=== PATIENT | female | born 1975 | race Caucasian/White ===

== ENCOUNTER 2017-10-06 15:28 | Emergency (ER) | payer OTHER ==
[~2017-10-06] VITALS: Ht 162.6 cm; Wt 63.5 kg
[2017-10-06] MEDS ORDERED: ACET1TAB23 PO (15:49)
[2017-10-06] MEDS ORDERED: HYDROCODONE/APAP 5-325MG TABLET ONE (16:29)
--- NOTE | 2017-10-06 16:29 | NUR ---
Patient discharged to home in stable conditon. Written and verbal after care instructions given. Patient verbalizes understanding of instructions.
[2017-10-06] MEDS ORDERED: HYDROCODONE/APAP 5-325MG TABLET PO ONE (16:30)
== END 2017-10-06 16:30 | disposition home or self-care (01) ==
LOC: ER 15:30
DX: K08.89 Other specified disorders of teeth and supporting structures (principal); Z79.891 Long term (current) use of opiate analgesic
CPT/HCPCS: 99282; A4663

== ENCOUNTER 2017-10-12 14:56 | Emergency (ER) | payer MEDICAID, OTHER ==
[~2017-10-12] VITALS: Ht 162.6 cm; Wt 63.5 kg
[~2017-10-12 14:56] MED LIST: ACET1TAB23 PO
[2017-10-12] MEDS ORDERED: HYDROCODONE/APAP 5-325MG TABLET PO ONE (16:45)
[2017-10-12] MEDS ORDERED: HYDROCODONE/APAP 5-325MG TABLET ONE (17:02)
--- NOTE | 2017-10-12 17:03 | NUR ---
Patient discharged to home in stable conditon. Written and verbal after care instructions given. Patient verbalizes understanding of instructions.
== END 2017-10-12 17:04 | disposition home or self-care (01) ==
LOC: ER 14:56
DX: K08.89 Other specified disorders of teeth and supporting structures (principal)
CPT/HCPCS: A4663